=== PATIENT | male | born 1995 | race Caucasian/White ===

== ENCOUNTER → 2020-07-14 | Outpatient (CLI) | payer BC ==
[~2020-07-14] VITALS: Ht 170.2 cm; Wt 63.5 kg
[~2020-07-14] MED LIST: COLACE100 MG PO; CULTURELLE KID1 EAC1 PO; METAMUCIL1 EAC1 PO; METHADONE HCL5 MG PO; SEROQUEL 25 MG25 MG PO; SUPER THERAVIT1 EACH PO; TRAZODONE HCL100 MG PO; VITAMIN C500 M1 PO
[2020-07-14 12:56] VITALS: BP 112/76
[2020-07-14 13:37] LABS: HEMATOCRIT 26.3 % (42.0-52.0); HEMOGLOBIN 8.5 gm/dL (14.0-18.0); MCH 26.5 pg (26.0-34.0); MCHC 32.3 g/dL (28.0-37.0); MCV 81.9 fL (80.0-100.0); RBC 3.21 mil/uL (4.50-6.00); RDW 18.5 % (10.5-14.5); WBC 6.7 thou/uL (4.0-11.0)
[2020-07-14 13:57] LABS: ALBUMIN 2.2 g/dL (3.4-5.0); CREATININE 0.7 mg/dL (0.7-1.3); DIRECT BILIRUBIN 0.3 mg/dL (<0.1-0.2); TOTAL BILIRUBIN 0.4 mg/dL (0.2-1.0)
--- NOTE | 2020-07-14 16:03 | NUR ---
IN FOR 1ST EVER DOSE OF DALBAVANCIN FOR ENDOCARDITIS. LABS DRAWN AND RESULTED. BUN/CR WNL. VASCULAR ACCESS TEAM STARTED IV PATIENT HAS VERY POOR PERIPHERAL ACCESS. LABS DRAWN FROM PERIPHERAL IV. INFUSED DALBAVANCIN OVER 1 HOUR AND TOLERATED WELL. REMOVED IV AD DISMISSED IN STABLE CONDITION. FAXED LAB RESULTS TO DR. GONZALEZ, DR. WALDRON, AND DR. MEYERS. TO RETURN NEXT SUNDAY FOR DOSE #2.
== END ==
LOC: OPONC 12:20
PROVIDERS: ATTEND Internal Medicine Infectious Disease
DX: I38 Endocarditis, valve unspecified (principal)
CPT/HCPCS: 95000

== ENCOUNTER → 2020-07-21 | Outpatient (CLI) | payer BC ==
[2020-07-21 12:26] VITALS: BP 102/64
[2020-07-21 12:43] LABS: ALBUMIN 2.5 g/dL (3.4-5.0); CREATININE 0.7 mg/dL (0.7-1.3); DIRECT BILIRUBIN 0.2 mg/dL (<0.1-0.2); TOTAL BILIRUBIN 0.4 mg/dL (0.2-1.0); TOTAL PROTEIN 9.8 g/dL (6.4-8.2)
[2020-07-21 12:50] LABS: HEMATOCRIT 28.8 % (42.0-52.0); HEMOGLOBIN 9.3 gm/dL (14.0-18.0); MCH 26.4 pg (26.0-34.0); MCHC 32.4 g/dL (28.0-37.0); MCV 81.3 fL (80.0-100.0); RBC 3.54 mil/uL (4.50-6.00); RDW 18.1 % (10.5-14.5); WBC 6.5 thou/uL (4.0-11.0)
--- NOTE | 2020-07-21 13:19 | NUR ---
VAT RN INSERTED 20GX1.75IN PIV, JUST PROXIMAL TO AC SPACE, USING US GUIDANCE, X1 ATTEMPT.
--- NOTE | 2020-07-21 14:55 | NUR ---
HERE FOR 2ND OF 3 SCHEDULED IV DALVANCE INFUSIONS. REPORTS FEELING MUCH BETTER, MORE ENERGY, GOOD APPETITE, GAINING SOME WEIGHT. DENIES N/V/DIARRHEA, FEVER/CHILLS. DOES HAVE SOME LOW BACK PAIN BUT STATES THAT HAS BEEN IMPROVING WELL. NO UNTOWARD SIDE EFFECTS NOTED FROM LAST WEEK'S INFUSION. VASCULAR ACCESS NURSE PLACED SALINE LOCK, LABS DRAWN, DALVANCE GIVEN ORDERED. PT TOLERATED WITHOUT INCIDENT. DISMISSED IN STABLE CONDITION. WILL RETURN AGAIN NEXT WEEK ON SUNDAY. HAS APPT WITH DR. GONZALEZ NEXT WEEK ON SUNDAY.
== END ==
LOC: OPONC 11:30
PROVIDERS: ATTEND Internal Medicine Infectious Disease
DX: I33.0 Acute and subacute infective endocarditis (principal)
CPT/HCPCS: 95000

== ENCOUNTER → 2020-07-29 | Outpatient (CLI) | payer BC ==
[2020-07-29 13:23] VITALS: BP 117/68
[2020-07-29 13:37] LABS: HEMOGLOBIN 9.2 gm/dL (14.0-18.0); MCH 26.4 pg (26.0-34.0); MCHC 32.7 g/dL (28.0-37.0); MCV 80.8 fL (80.0-100.0); RBC 3.47 mil/uL (4.50-6.00); WBC 7.3 thou/uL (4.0-11.0)
[2020-07-29 13:47] LABS: ALBUMIN 2.7 g/dL (3.4-5.0); CREATININE 0.8 mg/dL (0.7-1.3); DIRECT BILIRUBIN 0.2 mg/dL (<0.1-0.2); TOTAL BILIRUBIN 0.3 mg/dL (0.2-1.0); TOTAL PROTEIN 9.5 g/dL (6.4-8.2)
--- NOTE | 2020-07-29 15:29 | NUR ---
IN FOR LAST DALBAVANCIN DOSE FOR ENDOCARDITIS. PATIENT STATED FEELING GOOD AND EXCITED TO BE GETTING HIS FINAL DOSE. IV TEAM PLACED PERIPHERAL IV IN LAC AND LABS DRAWN. LAB RESULTS WITHIN NORMAL LIMITS. DALBAVANCIN INFUSED OVER 30 MINUTES AND TOLERATED WELL. FAXED ALL LAB RESULTS TO DR. MEYERS, DR. WALDRON, DR. GONZALEZ. SCHEDULED TO RETURN ON 08/10/20 FOR BLOOD CULTURES. IV REMOVED AND DISMISSED IN GOOD CONDITION.
== END ==
LOC: OPONC 11:11
PROVIDERS: ATTEND Internal Medicine Infectious Disease
DX: A49.02 Methicillin resistant Staphylococcus aureus infection, unspecified site (principal); I33.0 Acute and subacute infective endocarditis
CPT/HCPCS: 95000

== ENCOUNTER → 2020-08-10 | Outpatient (CLI) | payer BC ==
[2020-08-10 10:05] VITALS: BP 98/58
--- NOTE | 2020-08-10 13:44 | NUR ---
PATIENT IN FOR BLOOD CULTURES X 2 FOR FOLLOWUP OF SEPSIS AND ENDOCARDITIS. [facility]. WILL FAX RESULTS WHEN AVAILABLE. STATED FEELING WELL. VITAL SIGNS GOOD. DISMISSED IN GOOD CONDITION.
== END ==
LOC: OPONC 13:57
PROVIDERS: ATTEND Internal Medicine Infectious Disease
DX: I33.0 Acute and subacute infective endocarditis (principal); B95.62 Methicillin resistant Staphylococcus aureus infection as the cause of diseases classified elsewhere